=== PATIENT | male | born 1970 | race Caucasian/White ===

== ENCOUNTER 2022-12-26 14:30 | Outpatient (RCR) | payer BC, SELFPAY | END 2023-02-12 10:18 | disposition home or self-care (01) | PROVIDERS: PCP Internal Medicine; Visit Provider Family Medicine | DX: M77.8 Other enthesopathies, not elsewhere classified (principal); M25.511 Pain in right shoulder; M62.81 Muscle weakness (generalized); Z51.89 Encounter for other specified aftercare | CPT/HCPCS: 97110; 97112; 97140; 97161; 97535 ==

== ENCOUNTER 2022-12-31 10:46 | Outpatient (CLI) | payer BC, SELFPAY ==
--- NOTE | 2022-12-31 08:03 | W.ANESCHARGE ---
Anesthesia Charges Start Date/Time Anesthesia Start Date: 12/31/22 Anesthesia Start Time: 12:10 Stop Date/Time Anesthesia Stop Date: 12/31/22 Anesthesia Stop Time: 12:56
--- NOTE | 2022-12-31 15:02 | W.ANESCHARGE ---
Anesthesia Charges Start Date/Time Anesthesia Start Date: 12/31/22 Anesthesia Start Time: 12:10 Stop Date/Time Anesthesia Stop Date: 12/31/22 Anesthesia Stop Time: 12:56
== END 2022-12-31 10:47 | disposition home or self-care (01) ==
PROVIDERS: PCP Family Medicine; Visit Provider Internal Medicine Gastroenterology
DX: Z12.11 Encounter for screening for malignant neoplasm of colon (principal); K63.5 Polyp of colon
CPT/HCPCS: 00811; 45380; 45385; 88305; J2704